=== PATIENT | male | born 1940 | race Caucasian/White ===

== ENCOUNTER 2019-04-23 08:56 | Emergency (ER) | payer OTHER ==
[2019-04-23 09:04] VITALS: BMI 63.6
--- NOTE | 2019-04-23 09:24 | PDOC ---
History of Present Illness - General Chief Complaint: Headache Stated Complaint: HEADACHE Time Seen by Provider: 04/23/19 09:06 History Source: Patient Exam Limitations: No Limitations - History of Present Illness Initial Comments: 04/23/19 10:06 Gene Lunsford is a 78yM w PMHx DM presenting w headache. Sudden onset 10d ago w progressively worsening L occipital headache radiating to forehead and down neck. Pain now 8/10 worse w movement, not relieved w ibuprofen. Denies head trauma, photo/phonophobia, blood thinners. Never had this type of headache before. Occasional smoker,denies alcohol, other drugs. Denies fever, dizziness, nausea/vomiting, change of vision, SOB, chest/AB pain, urinary, bowel mvmt changes. Past History - Past Medical History Allergies/Adverse Reactions: Allergies Allergy/AdvReac Type Severity Reaction Status Date / Time No Known Allergies Allergy Verified 04/23/19 09:04 Home Medications: Ambulatory Orders Aspirin [Aspirin EC] 81 mg PO DAILY 04/23/19 Atorvastatin Ca [Lipitor] 40 mg PO HS 04/23/19 Empagliflozin [Jardiance] 25 mg PO DAILY 04/23/19 Glipizide/Metformin HCl [Glipizide-Metformin 5-500 mg] 1 tab PO DAILY 04/23/19 Losartan Potassium 25 mg PO DAILY 04/23/19 COPD: No Diabetes: Yes - Immunization History Immunization Up to Date: No - Psycho Social/Smoking Cessation Hx Smoking History: Current some day smoker Have you smoked in the past 12 months: No Information on smoking cessation initiated: No Hx Alcohol Use: No Drug/Substance Use Hx: No Review of Systems - Review of Systems Constitutional: No: Chills, Fever HEENTM: No: Eye Pain, Recent change in vision, Nose Pain, Throat Pain, Mouth Pain Respiratory: No: Cough, Shortness of Breath Cardiac (ROS): No: Chest Pain, Palpitations, Syncope ABD/GI: No: Abdominal Distended, Constipated, Diarrhea, Nausea, Vomiting : No: Burning, Dysuria, Discharge, Frequency, Flank Pain, Hematuria Musculoskeletal: No: Back Pain, Joint Pain, Joint Swelling, Muscle Pain Integumentary: No: Bruising, Dryness, Erythema Neurological: Yes: Headache. No: Numbness, Paresthesia, Pre-Existing Deficit, Seizure, Tingling, Tremors, Weakness, Unsteady Gait, Ataxia, Dizziness Psychiatric: No: Anxiety, Depression, Stressors Endocrine: No: Excessive Sweating, Flushing, Intolerance to Cold, Intolerance to Heat Hematologic/Lymphatic: No: Anemia, Blood Clots, Easy Bleeding *Physical Exam - Vital Signs Last Vital Signs Temp Pulse Resp BP Pulse Ox 97.5 F L 102 H 16 139/68 96 04/23/19 09:02 04/23/19 09:02 04/23/19 09:02 04/23/19 09:02 04/23/19 09:02 - Physical Exam General Appearance: Yes: Nourished, Appropriately Dressed, Mild Distress HEENT: positive: EOMI, HANNA, Normal Voice, Hearing Grossly Normal. negative: Scleral Icterus (R), Scleral Icterus (L), Nasal Congestion, Rhinorrhea Neck: positive: Supple. negative: Tender, Rigid Respiratory/Chest: positive: Lungs Clear, Normal Breath Sounds. negative: Chest Tender, Respiratory Distress, Crackles, Rales, Rhonchi, Stridor, Wheezing Cardiovascular: positive: Regular Rhythm, S1, S2, Tachycardia, Systolic Murmur. negative: Edema Gastrointestinal/Abdominal: positive: Normal Bowel Sounds ED Treatment Course - LABORATORY CBC & Chemistry Diagram: 04/23/19 10:00 04/23/19 10:00 Medical Decision Making - Medical Decision Making 04/23/19 09:58 CBC CMP trop coags Head CT shows no evidence of bleed/infarct/lesion/mass effect/fracture 1L NS, tylenol, reglan for pain Gene Lunsford is a 78yM w PMHx DM presenting w 10d worsening L occipital headache likely d/t migraine. Head CT shows no evidence of bleed/infarct/lesion/ mass effect/fracture. Neuro intact. Headache relieved w 1L NS, tylenol, reglan. Labs normal, negative trop. BG elevated 200. D/c home w neuro f/u and tylenol/ ibuprofen instructions Discharge - Discharge Information Problems reviewed: Yes Clinical Impression/Diagnosis: Migraine Qualifiers: Migraine type: without aura Status migrainosus presence: without status migrainosus Intractability: not intractable Qualified Code(s): G43.009 - Migraine without aura, not intractable, without status migrainosus Condition: Improved Disposition: HOME - Admission No - Follow up/Referral Referrals: ON STAFF,NOT [Primary Care Provider] - Anna Venegas MD [Staff Physician] - - Patient Discharge Instructions Patient Printed Discharge Instructions: DI for Headache Additional Instructions: You were seen for a headache. Your labs and imaging did not show anything concerning. You were given medication for your headache. Alternate between 600mg ibuprofen (3 regular strength pills) and 650mg tylenol ( 2 regular strength pills) every 3 hours and drink lots of water to stop your headache. Make an appointment with the referred neurologist Dr Venegas if you have another similar headache. Come back to the ED if you have worsening headache, vision changes, or fever. - Post Discharge Activity
--- NOTE | 2019-04-23 09:33 | PDOC ---
Attending Attestation - Resident Resident Name: Chidi Zamora - HPI HPI: 04/23/19 11:57 Pt presents to the ED complaining of a 10 day history of diffuse frontal headache. Denies fever, nausea or vomiting, other complaints. - Physicial Exam PE: 04/23/19 12:21 Agree with resident exam. PAtient is alert and oriented and in no acute distress. Neurologically intact. - Medical Decision Making 04/23/19 12:22 Pt presents to the ED complaining of diffuse frontal headache for [address] head performed to rule out intracranial mass and is normal. Headache now resolved. Will discharge home with instructions to return to the ED for new or worsening symptoms.
[2019-04-23] MEDS ORDERED: SODIUM CHLORIDE 0.9% 500 ML INFUS.BAG IV ONE (09:48)
[2019-04-23] MEDS ORDERED: ACETAMINOPHEN 1000 MG/100 ML VIAL (NON FORMULARY) IVPB ONE (09:48)
[2019-04-23] MEDS ORDERED: METOCLOPRAMIDE HCL INJECTION 10 MG/2 ML VIAL IVPUSH ONE (09:48)
[2019-04-23] MEDS ORDERED: METOCLOPRAMIDE HCL INJECTION 10 MG/2 ML VIAL ONE (09:58)
[2019-04-23] MEDS ORDERED: ACETAMINOPHEN INJECTION 100 ML IVPB ONE (10:11)
[2019-04-23 10:16] LABS: BASO % 0.3 % (0-2.0); EOS % 2.7 % (0-4.5); HEMATOCRIT 39.7 % (35.4-49); HEMOGLOBIN 13.8 GM/dL (11.7-16.9); LYMPH % 27.2 % (8-40); MCH 32.2 pg (25.7-33.7); MCHC 34.9 g/dl (32.0-35.9); MEAN CELL VOLUME 92.4 fl (80-96); MEAN PLT VOLUME 7.8 fl (7.5-11.1); MONO % 8.7 % (3.8-10.2); NEUT % 61.1 % (42.8-82.8); PLATELET COUNT 234 K/MM3 (134-434); RDW 13.4 % (11.9-15.9); WHITE BLOOD COUNT 6.3 K/mm3 (4.0-10.0)
[2019-04-23 10:37] LABS: INR 0.99 (0.83-1.09); PROTHROMBIN TIME (PATIENT) 11.7 SEC (9.7-13.0)
[2019-04-23 10:40] LABS: ACTIVATED PTT 34.4 SECONDS (25.2-36.5)
[2019-04-23 10:54] LABS: ALBUMIN 4.1 g/dl (3.4-5.0); BILIRUBIN,TOTAL 0.6 mg/dL (0.2-1); CALCIUM 9.1 mg/dL (8.5-10.1); CREATININE 0.9 mg/dL (0.55-1.3); POTASSIUM 4.1 mmol/L (3.5-5.1); TOT PROT 7.7 g/dl (6.4-8.2)
[2019-04-23 12:33] VITALS: BP 140/80; PULSE 90; TEMP 97.8
== END 2019-04-23 11:55 | disposition home or self-care (01) ==
LOC: JER 08:56
PROC: 3E033NZ Introduction of Analgesics, Hypnotics, Sedatives into Peripheral Vein, Percutaneous Approach (ICD-10-PCS; principal; 2019-04-23)
PROC: 3E033GC Introduction of Other Therapeutic Substance into Peripheral Vein, Percutaneous Approach (ICD-10-PCS; 2019-04-23)
PROC: 3E0337Z Introduction of Electrolytic and Water Balance Substance into Peripheral Vein, Percutaneous Approach (ICD-10-PCS; 2019-04-23)
DX: G43.009 Migraine without aura, not intractable, without status migrainosus (principal); E11.9 Type 2 diabetes mellitus without complications; F17.210 Nicotine dependence, cigarettes, uncomplicated
CPT/HCPCS: 36415; 70450-TC; 80053; 84484; 85025; 85610; 85730; 99284-25; J0131

== ENCOUNTER 2023-08-15 11:07 | Inpatient (IN) | payer OTHER ==
[2023-08-15] MEDS ORDERED: ACETAMINOPHEN 1000 MG/100 ML BAG IVPB ONE (12:03)
[2023-08-15] MEDS ORDERED: ACETAMINOPHEN INJECTION 100 ML IVPB ONE (12:22)
[2023-08-15 12:57] LABS: VENOUS BASE EXCESS 0.9 mmol/L (-2-2); VENOUS O2 SATURATION 86.5 % (70-80); VENOUS PH 7.393 (7.310-7.410)
[2023-08-15 13:10] LABS: BASO % 0.1 % (0-2.0); EOS % 0.5 % (0-4.5); HEMATOCRIT 36.1 % (35.4-49); HEMOGLOBIN 12.2 GM/dL (11.7-16.9); MCH 30.4 pg (25.7-33.7); MCHC 33.7 g/dl (32.0-35.9); MEAN CELL VOLUME 90.1 fl (80-96); MEAN PLT VOLUME 7.9 fl (7.5-11.1); MONO % 11.5 % (3.8-10.2); NEUT % 74.9 % (42.8-82.8); PLATELET COUNT 154 10^3/uL (134-434); RBC 4.01 M/mm3 (4.00-5.60); RDW 13.4 % (11.9-15.9); WHITE BLOOD COUNT 7.1 K/mm3 (4.0-10.0)
[2023-08-15 13:16] LABS: INR 1.16 (0.83-1.09); PROTHROMBIN TIME (PATIENT) 13.4 SEC (9.7-13.0)
[2023-08-15 13:19] LABS: ACTIVATED PTT 25.9 SECONDS (25.2-36.5)
[2023-08-15] MEDS ORDERED: LACTATED RINGERS SOLUTION 1000 ML INFUS.BAG IV ONE (13:26)
[2023-08-15 13:34] LABS: POTASSIUM 4.2 mmol/L (3.5-5.1)
[2023-08-15 13:36] LABS: CALCIUM 8.7 mg/dL (8.5-10.1)
[2023-08-15 13:37] LABS: ALBUMIN 2.8 g/dl (3.4-5.0); BLOOD UREA NITROGEN 30.4 mg/dL (7-18)
[2023-08-15 13:40] LABS: CREATININE 1.2 mg/dL (0.55-1.3)
[2023-08-15 13:42] LABS: BILIRUBIN,TOTAL 0.6 mg/dL (0.2-1); TOT PROT 7.1 g/dl (6.4-8.2)
[2023-08-15 14:50] LABS: EPI CELLS 0 /uL (0-25.1); HYALINE CASTS 1 /uL (0-3.1); PH,URINE 5.5 (5.0-8.0); URINE APPEARANCE CLOUDY; URINE BACTERIA 5796 /uL (0-1359); URINE BILIRUBIN NEGATIVE (NEGATIVE); URINE COLOR YELLOW; URINE GLUCOSE (UA) 3+ (NEGATIVE); URINE KETONE NEGATIVE (NEGATIVE); URINE LEUK ESTERASE TRACE (NEGATIVE); URINE NITRITE NEGATIVE (NEGATIVE); URINE PROTEIN 2+ (NEGATIVE); URINE RBC 16 /uL (0-23.9); URINE WBC 183 /uL (0-25.8)
[2023-08-15 15:24] LABS: YEAST NONE SEEN (NEGATIVE)
[2023-08-15] MEDS ORDERED: CEFTRIAXONE 1,000 MG in DEXTROSE 5%-WATER - 50 ML IVPB ONE (15:52)
[2023-08-15] MEDS ORDERED: CEFTRIAXONE 1 GM/50 ML BAG ONE (16:05)
[2023-08-15] MEDS ORDERED: LACTATED RINGERS SOLUTION 1,000 ML IV SCH (20:30)
[2023-08-15] MEDS ORDERED: INSULIN (NOVOLOG) ASPART 100 UNITS/ML 10ML VIAL ONE (22:20)
[2023-08-15] MEDS: INSULIN ASPART SLIDING SCALE (NOVOLOG) 1 VIAL SQ SCH (22:22)
[2023-08-15] MEDS ORDERED: SODIUM CHLORIDE 1,000 ML IV SCH (22:30)
[2023-08-16] MEDS ORDERED: ACETAMINOPHEN 325 MG TABLET (FP) PO PRN (03:42)
[2023-08-16 07:15] LABS: BASO % 0.2 % (0-2.0); EOS % 0.5 % (0-4.5); HEMATOCRIT 34.9 % (35.4-49); HEMOGLOBIN 11.6 GM/dL (11.7-16.9); LYMPH % 16.7 % (8-40); MCH 30.4 pg (25.7-33.7); MCHC 33.1 g/dl (32.0-35.9); MEAN CELL VOLUME 91.8 fl (80-96); MEAN PLT VOLUME 8.7 fl (7.5-11.1); MONO % 10.5 % (3.8-10.2); NEUT % 72.1 % (42.8-82.8); PLATELET COUNT 141 10^3/uL (134-434); RBC 3.81 M/mm3 (4.00-5.60); WHITE BLOOD COUNT 7.7 K/mm3 (4.0-10.0)
[2023-08-16 07:37] LABS: POTASSIUM 3.7 mmol/L (3.5-5.1)
[2023-08-16] MEDS: INSULIN ASPART SLIDING SCALE (NOVOLOG) 1 VIAL SQ SCH ×4 (07:44→22:03)
[2023-08-16 07:50] LABS: CALCIUM 8.3 mg/dL (8.5-10.1)
[2023-08-16 07:51] LABS: ALBUMIN 2.5 g/dl (3.4-5.0); BLOOD UREA NITROGEN 20.6 mg/dL (7-18); MAGNESIUM 1.9 mg/dL (1.8-2.4)
[2023-08-16 07:53] LABS: BILIRUBIN,TOTAL 0.6 mg/dL (0.2-1)
[2023-08-16 07:54] LABS: CREATININE 0.9 mg/dL (0.55-1.3); PHOSPHOROUS 1.9 mg/dL (2.5-4.9)
[2023-08-16 07:56] LABS: TOT PROT 6.5 g/dl (6.4-8.2)
[2023-08-16] MEDS ORDERED: TAMSULOSIN HCL 0.4 MG CAP PO SCH (08:30)
[2023-08-16] MEDS ORDERED: CEFTRIAXONE 1 GM/50 ML BAG ONE (09:01)
[2023-08-16] MEDS ORDERED: ENOXAPARIN NA (PORCINE) 40 MG/0.4 ML DISP.SYRIN SQ SCH (10:00)
[2023-08-16] MEDS ORDERED: LOSARTAN POTASSIUM 25 MG TABLET PO SCH (10:00)
[2023-08-16] MEDS ORDERED: CEFTRIAXONE 1 GM in DEXTROSE 5%-WATER - 50 ML IVPB SCH (10:00)
[2023-08-16] MEDS ORDERED: SODIUM CHLORIDE 1,000 ML IV SCH (15:33)
[2023-08-16 18:16] VITALS: RESP 18; BMI 27.3
[2023-08-16] MEDS: ATORVASTATIN CA 20 MG TABLET (FP) PO SCH (21:55)
[2023-08-16] MEDS: NAPH,MB-DB/K PH,MBDB POWDER PACKET PO SCH (21:55)
[2023-08-16] MEDS ORDERED: ATORVASTATIN CA 20 MG TABLET (FP) PO SCH (22:00)
[2023-08-17] MEDS: ACETAMINOPHEN 325 MG TABLET (FP) PO PRN ×2 (02:46→17:24)
[2023-08-17] MEDS: INSULIN ASPART SLIDING SCALE (NOVOLOG) 1 VIAL SQ SCH ×4 (06:04→21:41)
[2023-08-17] MEDS: TAMSULOSIN HCL 0.4 MG CAP PO SCH (08:36)
[2023-08-17] MEDS: ENOXAPARIN NA (PORCINE) 40 MG/0.4 ML DISP.SYRIN SQ SCH (09:17)
[2023-08-17] MEDS: CEFTRIAXONE 1 GM in DEXTROSE 5%-WATER - 50 ML IVPB SCH (09:17)
[2023-08-17] MEDS: LOSARTAN POTASSIUM 25 MG TABLET PO SCH (09:17)
[2023-08-17] MEDS: NAPH,MB-DB/K PH,MBDB POWDER PACKET PO SCH ×2 (09:18→21:40)
[2023-08-17 10:32] LABS: BASO % 0.3 % (0-2.0); EOS % 3.1 % (0-4.5); HEMATOCRIT 34.9 % (35.4-49); HEMOGLOBIN 11.8 GM/dL (11.7-16.9); LYMPH % 16.4 % (8-40); MCH 30.6 pg (25.7-33.7); MCHC 33.7 g/dl (32.0-35.9); MEAN CELL VOLUME 90.8 fl (80-96); MEAN PLT VOLUME 8.2 fl (7.5-11.1); MONO % 11.3 % (3.8-10.2); NEUT % 68.9 % (42.8-82.8); PLATELET COUNT 151 10^3/uL (134-434); RBC 3.85 M/mm3 (4.00-5.60); WHITE BLOOD COUNT 7.2 K/mm3 (4.0-10.0)
[2023-08-17 10:54] LABS: POTASSIUM 3.9 mmol/L (3.5-5.1)
[2023-08-17 10:59] LABS: CALCIUM 8.3 mg/dL (8.5-10.1)
[2023-08-17 11:00] LABS: ALBUMIN 2.5 g/dl (3.4-5.0); BLOOD UREA NITROGEN 17.2 mg/dL (7-18)
[2023-08-17 11:03] LABS: CREATININE 0.9 mg/dL (0.55-1.3)
[2023-08-17 11:04] LABS: BILIRUBIN,TOTAL 0.6 mg/dL (0.2-1); TOT PROT 6.9 g/dl (6.4-8.2)
[2023-08-17] MEDS ORDERED: MAG HYDROX/AL HYDROX/SIMETH 30 ML UNIT-DOSE CUP PO ONE (18:21)
[2023-08-17] MEDS: PANTOPRAZOLE 40 MG TABLET PO SCH (18:40)
[2023-08-17] MEDS: ATORVASTATIN CA 20 MG TABLET (FP) PO SCH (21:40)
[2023-08-17] MEDS ORDERED: INSULIN (LEVEMIR) 100 UNITS/ML UNITS SQ SCH (22:00)
[2023-08-18] MEDS: INSULIN ASPART SLIDING SCALE (NOVOLOG) 1 VIAL SQ SCH ×2 (06:20→11:36)
[2023-08-18 07:12] VITALS: BP 128/52; PULSE 92; TEMP 97.7
[2023-08-18] MEDS: TAMSULOSIN HCL 0.4 MG CAP PO SCH (07:56)
[2023-08-18] MEDS: PANTOPRAZOLE 40 MG TABLET PO SCH (09:14)
[2023-08-18] MEDS: ENOXAPARIN NA (PORCINE) 40 MG/0.4 ML DISP.SYRIN SQ SCH (09:14)
[2023-08-18] MEDS: CEFTRIAXONE 1 GM in DEXTROSE 5%-WATER - 50 ML IVPB SCH (09:14)
[2023-08-18] MEDS: LOSARTAN POTASSIUM 25 MG TABLET PO SCH (09:14)
[2023-08-18 10:51] LABS: BASO % 0.3 % (0-2.0); EOS % 4.5 % (0-4.5); HEMATOCRIT 32.8 % (35.4-49); HEMOGLOBIN 11.4 GM/dL (11.7-16.9); LYMPH % 16.1 % (8-40); MCH 31.1 pg (25.7-33.7); MCHC 34.7 g/dl (32.0-35.9); MEAN CELL VOLUME 89.6 fl (80-96); MONO % 11.8 % (3.8-10.2); NEUT % 67.3 % (42.8-82.8); PLATELET COUNT 165 10^3/uL (134-434); RBC 3.66 M/mm3 (4.00-5.60); RDW 13.1 % (11.9-15.9); WHITE BLOOD COUNT 5.7 K/mm3 (4.0-10.0)
[2023-08-18 10:53] LABS: POTASSIUM 3.9 mmol/L (3.5-5.1)
[2023-08-18 11:01] LABS: CALCIUM 8.3 mg/dL (8.5-10.1)
[2023-08-18 11:02] LABS: BLOOD UREA NITROGEN 14.9 mg/dL (7-18); MAGNESIUM 1.8 mg/dL (1.8-2.4)
[2023-08-18 11:05] LABS: CREATININE 0.8 mg/dL (0.55-1.3); PHOSPHOROUS 1.9 mg/dL (2.5-4.9)
[2023-08-18] MEDS ORDERED: NAPH,MB-DB/K PH,MBDB POWDER PACKET PO ONE (12:15)
== END 2023-08-18 12:42 | disposition home or self-care (01) | DRG 951 ==
LOC: JER 11:07 → JERBED 20:34 → J5S 08-16 15:17
PROVIDERS: ADMIT Internal Medicine; ATTEND Internal Medicine
DX: U09.9 Post COVID-19 condition, unspecified (principal); N40.1 Benign prostatic hyperplasia with lower urinary tract symptoms; I10 Essential (primary) hypertension; E78.5 Hyperlipidemia, unspecified; E11.65 Type 2 diabetes mellitus with hyperglycemia; R00.0 Tachycardia, unspecified
CPT/HCPCS: 0241U-QW; 36415; 71045-TC-FY; 71250-TC; 80048; 80053; 81003; 82550; 82803; 82962; 83036; 83605; 83735; 84100; 84484; 85025; 85610; 85730; 86140; 86850; 86900; 86901; 87040; 87086; 93005; 93010; 99285-25